=== PATIENT | male | born 1970 | race Caucasian/White ===

== ENCOUNTER 2017-07-25 09:09 | Emergency (ER) | payer OTHER ==
[~2017-07-25] VITALS: Ht 167.6 cm; Wt 70.2 kg
[2017-07-25 09:50] LABS: HEMATOCRIT 42.9 % (38.0-50.0); MCH 29.5 PG (29.0-34.0); MCHC 33.6 G/DL (30.0-36.0); MCV 87.9 FL (86-99); RBC DIS.WIDTH-CV 12.3 % (11.8-14.6); RBC DIS.WIDTH-SD 39.8 % (39-53); RED BLOOD COUNT 4.88 M/uL (4.00-5.50); WHITE BLOOD COUNT 8.6 K/uL (4.1-10.2)
[2017-07-25 10:02] LABS: CHLORIDE 104 mEq/L (99-109); POTASSIUM 3.8 mEq/L (3.7-5.4); SODIUM 138 mEq/L (136-147)
[2017-07-25 10:04] LABS: GLUCOSE 107 mg/dL (70-99)
[2017-07-25 10:05] LABS: ANION GAP 12 MEQ/L (2-14)
[2017-07-25 10:06] LABS: TOTAL BILIRUBIN 0.4 mg/dL (0.0-1.0)
[2017-07-25 10:07] LABS: SERUM ETHYL ALCOHOL < 10 mg/dL
[2017-07-25 10:08] LABS: ALKALINE PHOSPHATASE 62 IU/L (3-129); GFR ESTIMATE (CALCULATED) > 59 mL/min/
[2017-07-25 10:09] LABS: UREA NITROGEN (BUN) 10 mg/dL (9-23)
[2017-07-25 10:33] LABS: MEAN PLAT.VOLUME 11.8 uM^3 (9.0-12.4); PLATELET COUNT 234 K/uL (156-360)
[2017-07-25 10:35] LABS: ADD MIUA? NO; BILIRUBIN NEGATIVE; BLOOD NEGATIVE; COLOR YELLOW ((YELLOW)); GLUCOSE (STRIP) NEGATIVE; KETONES 20; LEUKOCYTES NEGATIVE; NITRITE NEGATIVE; PROTEIN (STRIP) NEGATIVE; UCUL ADDED? NO; UROBILINOGEN 0.2 MG/DL (0.2-1.0)
[2017-07-25 11:13] LABS: AMPHETAMINE NEGATIVE (500 ng/mL); BARBITURATES NEGATIVE (200 ng/mL); BENZODIAZEPINES PRESUMPTIVE POSITIVE (150 ng/mL); COCAINE NEGATIVE (150 ng/mL); INTERNAL CONTROLS VALID? YES; METHADONE NEGATIVE (200 ng/mL); METHAMPHETAMINE NEGATIVE (500 ng/mL); OPIATES (MORPHINE) NEGATIVE (100 ng/mL); OXYCODONE NEGATIVE (100 ng/mL); PHENCYCLIDINE NEGATIVE (25 ng/mL); PROPOXYPHENE NEGATIVE (300 ng/mL); THC CANNABINOIDS NEGATIVE (50 ng/mL); TRICYCLIC ANTIDEPRESSANTS NEGATIVE (300 ng/mL)
[2017-07-25 11:14] LABS: ADD MEDTOX COMMENT Y
[2017-07-25 11:54] LABS: BENZODIAZEPINES QUANT VALUE 0 NG/ML; BENZODIAZEPINES, URINE SCREEN Negative (200 ng/mL)
[2017-07-25] MEDS ORDERED: ATARAX,VISTARIL25 MG PO (12:34)
[2017-07-25 13:11] VITALS: BP 160/98
== END 2017-07-25 13:12 | disposition home or self-care (01) ==
LOC: EME 09:09
PROVIDERS: Emergency Medicine
DX: F41.0 Panic disorder [episodic paroxysmal anxiety] (principal); F32.9 Major depressive disorder, single episode, unspecified; Z81.8 Family history of other mental and behavioral disorders
CPT/HCPCS: 80053; 81003; 84999; 85027; 90839; 99281; 99284; G0480